=== PATIENT | female | born 1965 | race Caucasian/White ===

== ENCOUNTER → 2020-05-14 10:59 | Outpatient (BNVA) | payer OTHER, SELFPAY | PROVIDERS: PCP Nurse Practitioner Family; Visit Provider Family Medicine Adult Medicine | DX: M48.061 Spinal stenosis, lumbar region without neurogenic claudication (principal); M13.851 Other specified arthritis, right hip | CPT/HCPCS: Q3014 ==

== ENCOUNTER → 2020-06-11 15:37 | Outpatient (BNVA) | payer OTHER, SELFPAY | PROVIDERS: PCP Nurse Practitioner Family; Visit Provider Family Medicine Adult Medicine | DX: M47.812 Spondylosis without myelopathy or radiculopathy, cervical region (principal); M48.061 Spinal stenosis, lumbar region without neurogenic claudication; M13.851 Other specified arthritis, right hip; Z79.899 Other long term (current) drug therapy | CPT/HCPCS: 99212 ==

== ENCOUNTER → 2020-06-26 15:27 | Outpatient (BNVA) | payer OTHER, SELFPAY | PROVIDERS: PCP Nurse Practitioner Family; Visit Provider Nurse Practitioner Family | DX: M48.061 Spinal stenosis, lumbar region without neurogenic claudication (principal); M13.851 Other specified arthritis, right hip; M47.812 Spondylosis without myelopathy or radiculopathy, cervical region | CPT/HCPCS: 99212 ==

== ENCOUNTER → 2020-07-14 14:48 | Outpatient (BNVA) | payer OTHER, SELFPAY | PROVIDERS: PCP Nurse Practitioner Family; Visit Provider Family Medicine Adult Medicine | DX: M13.851 Other specified arthritis, right hip (principal); M48.061 Spinal stenosis, lumbar region without neurogenic claudication; M47.812 Spondylosis without myelopathy or radiculopathy, cervical region | CPT/HCPCS: Q3014 ==

== ENCOUNTER → 2020-07-21 14:55 | Outpatient (BNVA) | payer OTHER, SELFPAY | PROVIDERS: PCP Nurse Practitioner Family; Visit Provider Family Medicine Adult Medicine | DX: M48.061 Spinal stenosis, lumbar region without neurogenic claudication (principal); M47.812 Spondylosis without myelopathy or radiculopathy, cervical region | CPT/HCPCS: 99212 ==

== ENCOUNTER → 2020-07-30 14:45 | Outpatient (BNVA) | payer OTHER, SELFPAY | PROVIDERS: PCP Nurse Practitioner Family; Visit Provider Family Medicine Adult Medicine | DX: M48.061 Spinal stenosis, lumbar region without neurogenic claudication (principal); M47.812 Spondylosis without myelopathy or radiculopathy, cervical region | CPT/HCPCS: 99212 ==

== ENCOUNTER → 2020-08-04 08:26 | Outpatient (BNVA) | payer OTHER, SELFPAY | PROVIDERS: PCP Nurse Practitioner Family; Visit Provider Family Medicine Adult Medicine | DX: M48.061 Spinal stenosis, lumbar region without neurogenic claudication (principal); M47.812 Spondylosis without myelopathy or radiculopathy, cervical region | CPT/HCPCS: Q3014 ==

== ENCOUNTER 2020-08-20 09:28 | Outpatient (REF) | payer OTHER, SELFPAY ==
[2020-08-20 12:01] LABS: Alanine Aminotransferase 31 U/L (0-31); Albumin Level 3.8 g/dL (3.5-5.0); Alkaline Phosphatase 99 U/L (39-117); Anion Gap 14 (12-20); Aspartate Amino Transferase 17 U/L (5-31); Bilirubin Total 0.2 mg/dL (0.0-1.0); Blood Urea Nitrogen 23 mg/dL (9-16); Calcium 9.1 mg/dL (8.4-10.2); Carbon Dioxide 30 mmol/L (22-29); Chloride 101 mmol/L (96-108); Cholesterol 195 mg/dL; Estimated Glomerular Filt Rate > 60; Glucose Fasting 97 mg/dL (60-99); HDL Cholesterol 48 mg/dL; LDL Cholesterol Calculated 125 mg/dl; Potassium 4.1 mmol/L (3.3-5.1); Sodium 141 mmol/L (135-145); Total Protein 6.4 g/dL (6.5-8.0); Triglycerides 112 mg/dL
[2020-08-20 12:14] LABS: B Type Natriuretic Peptide 24 pg/mL (<100)
[2020-08-20 12:25] LABS: TSH reflex Free T4 1.28 uIU/mL (0.32-4.0)
== END 2020-08-20 09:29 | disposition home or self-care (01) ==
LOC: HO.HMGCLDS 09:28
PROVIDERS: PCP Nurse Practitioner Family; Visit Provider Nurse Practitioner Family
DX: M79.89 Other specified soft tissue disorders (principal)
CPT/HCPCS: 36415; 80053; 80061; 83880; 84443

== ENCOUNTER → 2020-08-27 10:54 | Outpatient (BNVA) | payer OTHER, SELFPAY | PROVIDERS: PCP Nurse Practitioner Family; Visit Provider Family Medicine Adult Medicine | DX: M48.061 Spinal stenosis, lumbar region without neurogenic claudication (principal); M47.812 Spondylosis without myelopathy or radiculopathy, cervical region; Z79.899 Other long term (current) drug therapy | CPT/HCPCS: 99212 ==

== ENCOUNTER 2020-09-24 10:09 | Outpatient (REF) | payer OTHER, SELFPAY | END 2020-09-24 10:10 | disposition home or self-care (01) | LOC: HO.LAB 10:09 | PROVIDERS: PCP Nurse Practitioner Family; Visit Provider Family Medicine Adult Medicine | DX: M48.061 Spinal stenosis, lumbar region without neurogenic claudication (principal); M47.812 Spondylosis without myelopathy or radiculopathy, cervical region; E66.9 Obesity, unspecified; Z79.891 Long term (current) use of opiate analgesic; Z79.899 Other long term (current) drug therapy; Z87.891 Personal history of nicotine dependence | CPT/HCPCS: 99212 ==

== ENCOUNTER → 2020-10-28 13:46 | Outpatient (BNVA) | payer OTHER, SELFPAY | PROVIDERS: PCP Nurse Practitioner Family; Visit Provider Nurse Practitioner Family | DX: M13.851 Other specified arthritis, right hip (principal); M48.061 Spinal stenosis, lumbar region without neurogenic claudication; M47.812 Spondylosis without myelopathy or radiculopathy, cervical region; Z79.891 Long term (current) use of opiate analgesic | CPT/HCPCS: 99212 ==

== ENCOUNTER → 2020-11-26 14:58 | Outpatient (BNVA) | payer OTHER, SELFPAY | PROVIDERS: PCP Nurse Practitioner Family; Visit Provider Family Medicine Adult Medicine | DX: Z51.81 Encounter for therapeutic drug level monitoring (principal); M48.061 Spinal stenosis, lumbar region without neurogenic claudication; M47.812 Spondylosis without myelopathy or radiculopathy, cervical region; E66.9 Obesity, unspecified | CPT/HCPCS: 99212 ==

== ENCOUNTER 2021-09-30 12:15 | Outpatient (REF) | payer OTHER, SELFPAY ==
[2021-09-30 13:43] LABS: MANUAL DIFF FLAG NO
[2021-09-30 13:50] LABS: Basophils Percent Auto 0.3 % (0-2); Eosinophils Percent Auto 0.1 % (0-4); Hematocrit 46.4 % (37.0-47.0); Imm Gran Abs Auto 0.06 X10*3/uL (0.00-0.03); Imm Gran Pct Auto 0.4 % (0.0-0.4); Lymphocytes Absolute Auto 2.4 X10*3/uL (1.2-4.9); Lymphocytes Percent Auto 17.8 % (20-40); Mean Corpuscular HGB Conc 32.3 g/dl (31.0-35.0); Mean Corpuscular Hemoglobin 29.6 pg (27.0-33.0); Mean Corpuscular Volume 91.5 fL (80.0-98.0); Mean Platelet Volume 11.3 fL (9.4-12.3); Monocytes Absolute Auto 0.9 X10*3/uL (0.1-1.2); Monocytes Percent Auto 6.5 % (2-11); Neutrophils Absolute Auto 10.1 x10*3/uL (2.0-8.3); Neutrophils Percent Auto 74.9 % (45-73); Platelet Count 373 X10*3/uL (160-400); Red Blood Count 5.07 X10*6/uL (4.20-5.50); Red Cell Distribution Width 13.9 % (11.0-16.0); White Blood Count 13.5 X10*3/uL (4.8-10.8)
[2021-09-30 14:06] LABS: Alanine Aminotransferase 10 U/L (0-31); Albumin Level 4.6 g/dL (3.5-5.0); Alkaline Phosphatase 155 U/L (39-117); Anion Gap 16 (12-20); Aspartate Amino Transferase 11 U/L (5-31); Bilirubin Total 0.4 mg/dL (0.0-1.0); Blood Urea Nitrogen 12 mg/dL (9-16); Calcium 9.7 mg/dL (8.4-10.2); Carbon Dioxide 27 mmol/L (22-29); Chloride 104 mmol/L (96-108); Estimated Glomerular Filt Rate > 60; Glucose Random 94 mg/dL (60-115); Potassium 4.1 mmol/L (3.3-5.1); Sodium 143 mmol/L (135-145); Total Protein 7.7 g/dL (6.5-8.0)
[2021-09-30 14:07] LABS: Appearance Urine CLEAR; Color Urine YELLOW; Glucose Urine UA NEG (NEG); Leukocyte Esterase Urine NEG (NEG); Nitrite Urine NEG (NEG); PH 6.5 (5.0-8.0); Specific Gravity - Urine 1.015 (1.005-1.025); UACC Culture Trigger NO; Urine Blood NEG (NEG); Urine Ketones NEG (NEG); Urine Protein 1+ MG/DL (NEG-TRACE)
[2021-09-30 14:14] LABS: Mucus Urine 1+ /LPF; RBC Urine 0-2 /HPF (0); Squamous Epithelial Cell Urine 1+ /LPF
[2021-09-30 14:30] LABS: TSH reflex Free T4 0.81 uIU/mL (0.32-4.0)
== END 2021-09-30 12:16 | disposition home or self-care (01) ==
LOC: HO.HMGCLDS 12:15
PROVIDERS: PCP Nurse Practitioner Family; Visit Provider Nurse Practitioner Family
DX: G89.29 Other chronic pain (principal); D72.829 Elevated white blood cell count, unspecified; R74.8 Abnormal levels of other serum enzymes; T14.8XXA Other injury of unspecified body region, initial encounter; L08.9 Local infection of the skin and subcutaneous tissue, unspecified
CPT/HCPCS: 36415; 80053; 81001; 81003; 84443; 85025

== ENCOUNTER → 2022-02-04 10:03 | Outpatient (BNVA) | payer OTHER, SELFPAY | PROVIDERS: PCP Nurse Practitioner Family; Visit Provider Surgery | DX: T81.89XD Other complications of procedures, not elsewhere classified, subsequent encounter (principal); S31.103D Unspecified open wound of abdominal wall, right lower quadrant without penetration into peritoneal cavity, subsequent encounter | CPT/HCPCS: 99202 ==

== ENCOUNTER 2022-02-23 06:02 | Day surgery (SDC) | payer OTHER, SELFPAY ==
[2022-02-23] VITALS (7 sets, daily range): BP systolic 134–187; BP diastolic 86–111; PULSE 79–85; RESP 16–22; TEMP 36.7–36.8; O2SAT 94–99; BMI 28.1
[2022-02-23] MEDS: Lactated Ringers 1,000 ML 100 ML IVCONT (07:41)
[2022-02-23] MEDS: vancomycin HCL 1,500 MG in 0.9 % Sodium Chloride 500 ML 333.33 MG IV (07:42)
--- NOTE | 2022-02-23 08:04 | P.CONAN_ITS ---
FORM[facility]LY [facility] Active Problems Active Problems: All Active Problems (Updated 02/15/22 @ 15:36 by Kasey Almaraz RN) Malabsorption syndrome (Acute) Personal history of other diseases of the digestive system (Acute) Swelling of both lower extremities (Acute) Wound infection (Acute) Thrush, oral (Acute) Trapezius muscle spasm (Acute) Chronic pain (Acute) Leukocytosis (Acute) Elevated alkaline phosphatase level (Acute) Chronic pain (Acute) Open wound of abdomen (Acute) Cervical spondylosis (Acute) Other specified arthritis, right hip (Acute) Lumbar stenosis (Acute) Past Medical History Medical History Cervical spondylosis Chronic back pain GERD (gastroesophageal reflux disease) History of depression Hx MRSA infection Lumbar stenosis Morbid obesity Other specified arthritis, right hip Spinal stenosis Family History Family History Sister Non-Hodgkin lymphoma Sister Aneurysm Family history of problems with anesthesia: No Surgical History Surgical History (Updated 02/15/22 @ 15:26 by Kasey Almaraz RN) H/O umbilical hernia repair (2017) History of cervical discectomy History of excision of mass History of excision of pilonidal cyst History of foot surgery History of incisional hernia repair History of Problems with Anesthesia: No Social History Social History Household Members Other:: , lives with son and grandson Housing: Homeless Patient Tobacco Use Status: Current everyday Tobacco user Tobacco use type: Cigarette Cigarette Packs Per Day: 0.5 Cigarettes Per Day: 10.0 e-Cigarette/Vaping Use: Currently Using (THC ) Use of substances other than those prescribed or required for medical reasons: Yes Are you DNR?: No Advance Directives: No Advance Directives Information Provided: Yes Current occupation: Former employed at [employer] last worked 2004 SS Disability about 15 y Cognitive needs: No Hearing needs: No Vision needs: No Meds Allergies Allergy/AdvReac Type Severity Reaction Status Date / Time Penicillins [PENICILLINS] Allergy Severe THROAT Verified 02/15/22 15:26 SWELLS gabapentin [GABAPENTIN] Allergy Intermediate HEADACHE/BLURRED Verified 02/15/22 15:26 VISION, Blurred vision, headaches Sulfa (Sulfonamide Allergy Unknown Unknown Verified 02/15/22 15:26 Antibiotics) Gkpnogf-JUN-KcL Reductase AdvReac Unknown STOMACH Verified 02/15/22 15:26 Inhibitor UPSET [NPKTMOU-XKO-XFW REDUCTASE INHIBITOR] Active Medications: Current Medications Lactated Ringer's (Lr) 1,000 mls @ 100 mls/hr IVCONT .Q10H SANA Last Admin: 02/23/22 07:41 Dose: 100 mls/hr Vancomycin HCl 1,500 mg/ (Sodium Chloride) 500 mls @ 333.333 mls/hr IV PREOP ONE Stop: 02/23/22 08:44 Last Admin: 02/23/22 07:42 Dose: 333.33 mls/hr Pharmacy Consult (Consult Rx Vancomycin Dosing) 1 each MISCELLANE DAILY PRN PRN Reason: Consult order Home Medications Medication Instructions Recorded Confirmed Last Taken Type acetaminophen 325 mg tablet 650 mg PO AC pain 02/23/22 02/23/22 02/23/22 04:00 History (Tylenol) Exam Exam Date and Time: February 23, 2022 0804 Height,Weight and Vital Signs: Height 5 ft 7 in Weight 81.647 kg Last Vital Signs Temp 98.0 F 02/23/22 07:30 Pulse 80 02/23/22 07:30 Resp 22 H 02/23/22 07:30 BP 134/86 02/23/22 07:30 Pulse Ox 96 02/23/22 07:30 O2 Del Method 02/23/22 07:30 Airway Mallampati Class: I TM Dist: >3cm Neck ROM: Full Denture: Upper and Lower Heart: rrr Lungs: clear Assessment and Plan Final Anesthetic Review Family History of Problems with Anesthesia: No History of Problems with Anesthesia: No ASA Class: II Final Preanesthetic Review: No Changes in Pt Med Stat, Meds/Allgs Chart Reviewed, Consent Obtained/Reviewed and Anes Risks/Benef Reviewed Patient Risk: Intermediate Procedure Risk: Intermediate Anesthetic Plan Anesthetic Plan: GA Disposition: Standard PACU
--- NOTE | 2022-02-23 11:03 | W.PM.OPN ---
Operative Note Operative Note Date of Service: 02/23/22 Narrative: Preoperative diagnosis: Abdominal wall fistula Postoperative diagnosis: abdominal wall fistula, foreign body abdominal wall Procedure: excision of abdominal wall fistula, removal of hernia mesh and sutures Surgeon: Lj Castaneda MD R&D Lab Technician: Mandy Waddell PA-C, SHAHEEN Ashford Anesthesia: general LMA Indications for procedure: 56-year-old female patient with a previous history of incisional hernia complicated by MRSA and sepsis at an outside hospital now with persistent fistula draining from multiple areas in her abdominal wall presumably from an underlying foreign body. Operative findings: Multiple sutures and mesh material from previous hernia repairs removed. Specimen: Hernia mesh and sutures, fistula tract Estimated blood loss: 20 mL Complications: none Procedure details: patient was brought to the OR placed in a supine position. After administering general anesthesia the patient's abdomen was prepped with Betadine and draped in a sterile fashion. A surgical time-out was called the consent confirmed. Patient received preoperative antibiotics and Venodyne boots were in place. Local anesthesia consisting of 0.5% Sensorcaine with epinephrine was then infiltrated in the midline around the fistulous tracts. A total of 20 mL Sensorcaine was infiltrated. Elliptical incision was then made around each of the fistulous tracts and carried out through subcutaneous tissue. A probe was used to identify the fistulous tract. Dissection was continued down using both sharp and electrocautery dissection down to the base of the fistula tract. Multiple sutures of either Tycron + Prolene was identified along with residual mesh material at the base of the granulation tissue. The mesh was removed and sutures removed. Several fascial defects were made to remove the mesh no bowel or enteric content was identified during the procedure. There was several areas of phlegmon and abscess cavity with purulent material noted within the granulation tissue. Cultures of the abscess were obtained. Wounds were then irrigated thoroughly with saline solution and suctioned dry. Wounds were checked for hemostasis. Fascial defects were closed using interrupted [id number] 0 Polysorb sutures. Subcutaneous tissue was then loosely approximated using interrupted 3-0 Polysorb sutures. Skin was closed using skin janette. Sterile dressings were then applied. The patient tolerated the procedure well. Sponge, instrument, and needle counts reported as correct. The patient was transferred to PACU in stable condition.
--- NOTE | 2022-02-23 13:23 | PC.NURSE ---
Patient in discharge area post procedure. During discharge instructions stated I have no one to call to pick me up . Phone number given in preop called multiple times with no answer. Director Kimmie made aware. Kimmie at bedside and spoke to patient who decided to sign out AMA. Patient states she will sleep in her car for a little . Patient wheeled down to car by lai Driscoll. Security notified and aware of the situation.
== END 2022-02-23 13:23 | disposition home or self-care (01) ==
PROVIDERS: PCP Surgery; Visit Provider Surgery
PROC: (CPT 11005; principal; 2022-02-23 08:40)
DX: S31.109A Unspecified open wound of abdominal wall, unspecified quadrant without penetration into peritoneal cavity, initial encounter (principal); T81.83XA Persistent postprocedural fistula, initial encounter; T85.79XA Infection and inflammatory reaction due to other internal prosthetic devices, implants and grafts, initial encounter; Y73.3 Surgical instruments, materials and gastroenterology and urology devices (including sutures) associated with adverse incidents; Y92.9 Unspecified place or not applicable; Z86.14 Personal history of Methicillin resistant Staphylococcus aureus infection; K90.9 Intestinal malabsorption, unspecified; Z87.19 Personal history of other diseases of the digestive system; G89.29 Other chronic pain; M47.812 Spondylosis without myelopathy or radiculopathy, cervical region; E66.9 Obesity, unspecified; Z68.26 Body mass index [BMI] 26.0-26.9, adult; Z79.899 Other long term (current) drug therapy; Z88.0 Allergy status to penicillin; Z88.2 Allergy status to sulfonamides; Z88.8 Allergy status to other drugs, medicaments and biological substances; F17.210 Nicotine dependence, cigarettes, uncomplicated; F12.90 Cannabis use, unspecified, uncomplicated; Z98.890 Other specified postprocedural states
CPT/HCPCS: 11005; 11008; 87070; 87077; 87186; 87205; 88304; J0330; J1100; J1170; J1885; J2250; J2405; J2795; J3010; J3370

== ENCOUNTER 2022-12-29 11:30 | Outpatient (AMB) | payer OTHER, SELFPAY ==
--- NOTE | 2022-12-29 11:31 | MHC.PC.OV ---
Vital Signs 12/29/22 11:32 Height 5 ft 7 in Weight 164 lb 2 oz BMI 25.7 BP 160/86 H Blood Pressure Location Rt brachial Position Sitting Pulse 102 H Pulse Source Pulse Oximeter Pulse Oximetry (%) 99 Oxygen Delivery Method Room Air Intake Visit Reasons: Annual PE/Forms Allergies Penicillins [PENICILLINS] Allergy (Severe, Verified 12/29/22 11:36) THROAT SWELLS gabapentin [GABAPENTIN] Allergy (Intermediate, Verified 12/29/22 11:36) HEADACHE/BLURRED VISION, Blurred vision, headaches Sulfa (Sulfonamide Antibiotics) Allergy (Unknown, Verified 12/29/22 11:36) Unknown Blvxzhg-ACE-NaW Reductase Inhibitor [YVMRGUQ-MFF-KVV REDUCTASE INHIBITOR] Adverse Reaction (Unknown, Verified 12/29/22 11:36) STOMACH UPSET Tobacco use date assessed: 12/29/22 Dental Screening Dental Screen Date: 12/29/22 Did you have a dental visit in the last 12 months?: Yes Did you have a dental problem in the last 6 months where you did not have access to dental care?: No Was dental information given to patient?: Patient has dentist HPI Annual PE/Forms HPI Details pt is here for a PE. paperwork filled out to get placed not so far back on a waiting list for housing. Pt does have true disabilities (significant lower back Hx). currently living in her car, has a care worker with her today. Highly agree she needs established housing to continue to heal, or increase her chances of healing, and for safety reasons as well. Colon screen was last done in 2016, will contact her GI provider to see when next colon screen is due. mammogram ordered. Pt refuses low dose CT scans (smoker). Bp is elevated, ? partially from pain. Pt does not want to be referred to pain management. refused EKG today. PT REFUSED BP MEDICATION. pt is clearly in pain, does not want any narcotics, i pray . i will send marinol, though used for appetite, may help with pain and nausea (pt requested medication). HPI Comments History of Present Illness Details Pt is here for a PE. colonoscopy is up to date [facility] Medical History (Updated 12/29/22 @ 12:33 by Lj Winn, EMMA-) Incontinence of urine Chronic back pain GERD (gastroesophageal reflux disease) Spinal stenosis Hx MRSA infection History of depression Cervical spondylosis Morbid obesity Other specified arthritis, right hip Lumbar stenosis Surgical History History of surgery (02/23/22) History of incisional hernia repair History of excision of pilonidal cyst History of foot surgery History of excision of mass History of cervical discectomy H/O umbilical hernia repair (2017) Family History Sister Non-Hodgkin lymphoma Sister Aneurysm Social History Household Members Other:: , lives with son and grandson Housing: Homeless Patient Tobacco Use Status: Current everyday Tobacco user Tobacco use type: Cigarette Cigarette Packs Per Day: 0.5 Cigarettes Per Day: 10.0 e-Cigarette/Vaping Use: Currently Using (THC ) Second Hand Smoke Exposure: No Current occupational status: unemployed Current occupation: Former employed at [employer] last worked 2004 SS Disability about 15 y Cognitive needs: No Hearing needs: No Vision needs: No Questionnaire AUDIT C Alcohol Use Questionnaire (AUDIT-C) 1. How often do you have a drink containing alcohol?: Never Total Score: 0 Review of Systems Const Denies chills and Denies fever(s) Eyes Denies blurry vision ENT Denies vertigo, Denies dizziness and Denies sore throat Card Denies chest pain at rest, Denies chest pain with activity, Denies diaphoresis, Denies dyspnea and Denies dyspnea on exertion Resp Denies cough, Denies dyspnea, Denies dyspnea on exertion and Denies wheezing GI Denies abdominal pain, Denies melena, Denies hematochezia, Denies constipation, Denies diarrhea and Denies loose stools Denies hematuria Musc Reports numbness (BLE) and Reports tingling Skin/Breast Denies lesions Neuro Denies vertigo, Denies dizziness, Reports numbness (BLE) and Reports tingling Psych Denies anxiety, Denies depression, Denies homicidal ideation, Denies suicidal ideation and Denies other (substance abuse) Aller/Immun Denies wheezing Physical exam (Primary Care) Vital Signs: Last Vital Signs Pulse 102 H 12/29/22 11:32 BP 160/86 H 12/29/22 11:32 Pulse Ox 99 12/29/22 11:32 Oxygen Delivery Method Room Air 12/29/22 11:32 BMI result Body Mass Index 25.7 Tobacco/Smoking Status: Tobacco use Status Tobacco use date assessed 12/29/22 12/29/22 11:38 Patient Tobacco Use Status Current everyday Tobacco 12/29/22 11:38 Tobacco use type Cigarette 12/29/22 11:38 e-Cigarette/Vaping Use Currently Using (THC ) 12/29/22 11:38 Const Other: using walker, using abd binder General: cooperative Nutritional Appearance: well nourished Orientation/consciousness: patient oriented x3 HENMT Head: Yes normal to inspection, Yes normocephalic and Yes atraumatic Ears: TM normal on the right and TM normal on the left Eyes General: appearance normal, both eyes and all related structures Alignment and Position: alignment normal and position normal Neck Neck: Yes normal visual inspection and Yes no lymphadenopathy Resp Effort & Inspection: normal respiratory effort Auscultation: clear to auscultation bilaterally (clear/dim bilat) Cardio Rate: regular rate Rhythm: regular rhythm Heart sounds: S1 normal heart sound present, S2 normal heart sound present and no murmurs GI Palpation (GI): Soft to palpation and nontender Auscultation: normal bowel sounds Skin Rashes: no rashes Neuro Other: left patellar DTR decreased. using walker General: patient oriented x3, moves all extremities and no focal motor deficits Romberg Test: Negative Extrem Right lower extremity: no edema Left lower extremity: no edema Psych Affect: normal affect Attitude: cooperative Thought process: Normal thought process present Assessment and Plan Assessment & Plan (1) Physical exam: Code(s): Z00.00 - Encounter for general adult medical examination without abnormal findings (2) Post-menopausal: Code(s): Z78.0 - Asymptomatic menopausal state (3) Systolic murmur: Code(s): R01.1 - Cardiac murmur, unspecified Plan: echo ordered Orders: Orders MM screening mammo BI Today Z12.31 - Encounter for screening mammogram for malignant neoplasm of breast UA CC w/rflx Micro + Cult Today Z00.00 - Encounter for general adult medical examination without abnormal findings Vitamin D 25-OH Total Today Z78.0 - Asymptomatic menopausal state CA echo transthoracic complete Today R01.1 - Cardiac murmur, unspecified Complete Blood Count Auto Diff Today Z00.00 - Encounter for general adult medical examination without abnormal findings Comprehensive [place]. Panel Fast Today Z00.00 - Encounter for general adult medical examination without abnormal findings TSH reflex Free T4 Today Z00.00 - Encounter for general adult medical examination without abnormal findings Lipid Panel Today Z00.00 - Encounter for general adult medical examination without abnormal findings Medications: New dronabinol (Marinol) 2.5 mg PO BEDTIME 30 caps 0RF Coding Level of Care Code Est Pt Prev Care 40-64y(14395) Diagnoses Physical exam Z00.00 Post-menopausal Z78.0 Systolic murmur R01.1
[2022-12-29 11:32] VITALS: BP 160/86; PULSE 102; O2SAT 99; BMI 25.7
== END 2022-12-29 13:55 | disposition home or self-care (01) ==
PROVIDERS: PCP Nurse Practitioner Family; Visit Provider Nurse Practitioner Family
DX: Z00.00 Encounter for general adult medical examination without abnormal findings (principal); Z78.0 Asymptomatic menopausal state; R01.1 Cardiac murmur, unspecified
CPT/HCPCS: 99396

== ENCOUNTER 2023-02-06 08:40 | Outpatient (AMB) | payer OTHER, SELFPAY ==
--- NOTE | 2023-02-06 07:09 | MHC.PC.OV ---
Intake Visit Reasons: Discuss drobabinol need, PA requires more info Allergies Penicillins [PENICILLINS] Allergy (Severe, Verified 12/29/22 11:36) THROAT SWELLS gabapentin [GABAPENTIN] Allergy (Intermediate, Verified 12/29/22 11:36) HEADACHE/BLURRED VISION, Blurred vision, headaches Sulfa (Sulfonamide Antibiotics) Allergy (Unknown, Verified 12/29/22 11:36) Unknown Jwerhtd-GMU-UjY Reductase Inhibitor [RFDSRFC-MKY-NZE REDUCTASE INHIBITOR] Adverse Reaction (Unknown, Verified 12/29/22 11:36) STOMACH UPSET Tobacco use date assessed: 12/29/22 HPI Discuss drobabinol need, PA requires more info HPI Details Pt would like to try dronabinol for pain. PA for this med was denied by insurance. Will submit appeal letter. Pt reports severe pain that is affecting her mobility. Pt has a Hx of several ABD surgeries, all fairly complicated. Further has lumbar spinal stenosis, DDD, a compression Fx (lumbar), chronic pain syndrome, Pt also needs assistance with housing. Will have team reach out to pt. Denies fever, chills, and dizziness. [facility] Medical History (Updated 01/06/23 @ 14:59 by Barbie Howlel RN) Incontinence of urine Chronic back pain GERD (gastroesophageal reflux disease) Spinal stenosis Hx MRSA infection History of depression Cervical spondylosis Morbid obesity Other specified arthritis, right hip Lumbar stenosis Surgical History History of surgery (02/23/22) History of incisional hernia repair History of excision of pilonidal cyst History of foot surgery History of excision of mass History of cervical discectomy H/O umbilical hernia repair (2017) Family History Sister Non-Hodgkin lymphoma Sister Aneurysm Social History Household Members Other:: , lives with son and grandson Housing: Homeless Patient Tobacco Use Status: Current everyday Tobacco user Tobacco use type: Cigarette Cigarette Packs Per Day: 0.5 Cigarettes Per Day: 10.0 e-Cigarette/Vaping Use: Currently Using (THC ) Second Hand Smoke Exposure: No Current occupational status: unemployed Current occupation: Former employed at [employer] last worked 2004 SS Disability about 15 y Cognitive needs: No Hearing needs: No Vision needs: No Review of Systems Const Reports as per HPI Physical exam (Primary Care) Tobacco/Smoking Status: Tobacco use Status Tobacco use date assessed 12/29/22 02/06/23 07:10 Patient Tobacco Use Status Current everyday Tobacco 02/06/23 07:10 Tobacco use type Cigarette 02/06/23 07:10 e-Cigarette/Vaping Use Currently Using (THC ) 02/06/23 07:10 Const General: cooperative Orientation/consciousness: patient oriented x3 Neuro General: patient oriented x3 Psych Appearance: grossly normal Mental Status: mental status grossly normal Speech and movement: Clear speech present Affect: normal affect Attitude: cooperative Thought process: Normal thought process present Thought content: Normal thought content present Insight: Good insight present (Psych) Judgement: Good judgement present (Psych) Telehealth Telehealth Location of provider rendering services: practice address Location of patient: address on file Patient Identification confirmed using: Name, : Yes Telehealth method: video Patient verbally consented to treatment: Yes Patient verbally consented to billing insurance company: Yes Patient informed of any privacy concerns related to visit: Yes Minutes spent on Phone/Video with Pt.: 20 Assessment and Plan Assessment & Plan (1) Homeless: Code(s): Z59.00 - Homelessness unspecified (2) Chronic pain: Code(s): G89.29 - Other chronic pain Plan The patient agreed to the use of a emergency medicine medical director for this encounter. Scribed for GLORIA Cruz by jose Prado scribe, on 02/06/2023 at 07:20 EST. Coding Level of Care Code Tele Est Pt Level 3 (76997) Diagnoses Homeless Z59.00 Chronic pain G89.29
== END 2023-02-06 13:59 | disposition home or self-care (01) ==
LOC: HO.HMGC 08:40
PROVIDERS: PCP Nurse Practitioner Family; Visit Provider Nurse Practitioner Family
DX: G89.29 Other chronic pain (principal); Z59.00 Homelessness unspecified
CPT/HCPCS: 99213

== ENCOUNTER 2023-02-27 11:13 | Outpatient (AMB) | payer OTHER, SELFPAY ==
--- NOTE | 2023-02-27 11:40 | MHC.OFFVIS ---
Intake Intake Visit Reasons: housing forms Allergies Penicillins [PENICILLINS] Allergy (Severe, Verified 12/29/22 11:36) THROAT SWELLS gabapentin [GABAPENTIN] Allergy (Intermediate, Verified 12/29/22 11:36) HEADACHE/BLURRED VISION, Blurred vision, headaches Sulfa (Sulfonamide Antibiotics) Allergy (Unknown, Verified 12/29/22 11:36) Unknown Xweezal-QCQ-EbN Reductase Inhibitor [SNTUEVY-IWN-CWX REDUCTASE INHIBITOR] Adverse Reaction (Unknown, Verified 12/29/22 11:36) STOMACH UPSET HPI housing forms HPI Details And Eriberto is currently living out of her car. She has been for quite some time. I have filled out paperwork previously to get her into housing, housing that can accommodate her and her needs. A form was REfilled out emphasizing that she does need housing in the very near future with winter coming, and do to her ongoing chronic illnesses. Patient unfortunately continues to smoke. She was looking for Marinol, but this has not been approved by her insurance. I tried explaining this to her several times. She reports she could not afford gummies . I really explain this all has to deal with the insurance. She has been to pain management in the past, she does not want to go here anymore, she is not interested in injections or opiates. She does use a walker. My major concern is getting her into housing. Our behavior health specialist has worked with this patient in the past, numbers were given for shelters, for example. Patient is still living in her car and I refilled out paperwork to get her into housing [place]. [facility] Medical History (Updated 02/27/23 @ 11:41 by GLORIA Mcgowan) Incontinence of urine Chronic back pain GERD (gastroesophageal reflux disease) Spinal stenosis Hx MRSA infection History of depression Cervical spondylosis Morbid obesity Other specified arthritis, right hip Lumbar stenosis Surgical History History of surgery (02/23/22) History of incisional hernia repair History of excision of pilonidal cyst History of foot surgery History of excision of mass History of cervical discectomy H/O umbilical hernia repair (2017) Family History Sister Non-Hodgkin lymphoma Sister Aneurysm Household Members Other:: , lives with son and grandson Housing: Homeless Patient Tobacco Use Status: Current everyday Tobacco user Tobacco use type: Cigarette Cigarette Packs Per Day: 0.5 Cigarettes Per Day: 10.0 e-Cigarette/Vaping Use: Currently Using (THC ) Second Hand Smoke Exposure: No Current occupational status: unemployed Current occupation: Former employed at [employer] last worked 2004 SS Disability about 15 y Cognitive needs: No Hearing needs: No Vision needs: No Assessment & Plan Assessment & Plan (1) Unsheltered homelessness: Code(s): Z59.02 - Unsheltered homelessness Plan: paperwork Re-filled out for housing. (2) Chronic back pain: Code(s): M54.9 - Dorsalgia, unspecified; G89.29 - Other chronic pain Plan: not interested in PT or pain management. Telehealth Telehealth Location of provider rendering services: practice address Location of patient: address on file (living in car) Patient verbally consented to treatment: Yes Patient verbally consented to billing insurance company: Yes Patient informed of any privacy concerns related to visit: Yes Minutes spent on Phone/Video with Pt.: 10 Coding Level of Care Code Tele Est Pt Level 3 ([id number]) Diagnoses Unsheltered homelessness Z59.02 Chronic back pain M54.9; G89.29
== END 2023-02-27 15:18 | disposition home or self-care (01) ==
LOC: HO.HMGC 11:13
PROVIDERS: PCP Nurse Practitioner Family; Visit Provider Nurse Practitioner Family
DX: M54.9 Dorsalgia, unspecified (principal); Z59.02 Unsheltered homelessness; G89.29 Other chronic pain
CPT/HCPCS: 99441

== ENCOUNTER 2024-08-28 16:06 | Outpatient (AMB) | payer OTHER, SELFPAY ==
[2024-08-28 16:11] VITALS: BP 122/80; PULSE 87; O2SAT 98
--- NOTE | 2024-08-28 16:11 | MHC.OFFWIV ---
Intake Vital Signs 08/28/24 16:11 Height 5 ft 7 in BMI Reason not done Patient refused/unable BP 122/80 Blood Pressure Location Lt brachial Position Sitting Pulse 87 Pulse Source Pulse Oximeter Pulse Oximetry (%) 98 Oxygen Delivery Method Room Air Intake Visit Reasons: EP severe pain on legs & back Patient Tobacco Use Status: Current everyday Tobacco user Allergies Penicillins [PENICILLINS] Allergy (Severe, Verified 08/28/24 16:12) THROAT SWELLS gabapentin [GABAPENTIN] Allergy (Intermediate, Verified 08/28/24 16:12) HEADACHE/BLURRED VISION, Blurred vision, headaches Sulfa (Sulfonamide Antibiotics) Allergy (Unknown, Verified 08/28/24 16:12) Unknown Sxtsmlh-CCK-ZtS Reductase Inhibitor [[id number]-[id number]-BCM REDUCTASE INHIBITOR] Adverse Reaction (Unknown, Verified 08/28/24 16:12) STOMACH UPSET Do you need a note to return to daycare/school/sports/work: No HPI HPI Comments History of Present Illness Details Patient is a 58yo F who presents to office with back and leg pain Per her PMH she has hx of chronic back pain lumbar compression fx, lumbar stenosis, MRSA infection Takes tylenol/ibuprofen and naproxen prn but is paying out of pocket for all meds SHe said chronic pain even after back surgery Has used Voltaren cream OTC She uses a walker to help ambulate She currently lives in her car and does not receive services for her chronic pain Has seen pain management in the past but does not want to go back to them No recent trauma or falls 10/10 pain Chronic hip pain is constant per pt Sitting.standing makes leg worse She said elg pain radiates down both legs She denies urine incontinence No dysuria, frequency or urgency No current hematuria; states in the am it is slightly darker but better with fluids and becomes clean No fever or chills Last time she was seen PCP in 2022. No specialist used for chronic pain PFSH Medical History (Updated 08/28/24 @ 16:48 by Rubi Landis PA-C) Incontinence of urine Chronic back pain GERD (gastroesophageal reflux disease) Spinal stenosis Hx MRSA infection History of depression Cervical spondylosis Morbid obesity Other specified arthritis, right hip Lumbar stenosis Surgical History History of surgery (02/23/22) History of incisional hernia repair History of excision of pilonidal cyst History of foot surgery History of excision of mass History of cervical discectomy H/O umbilical hernia repair (2017) Family History Sister Non-Hodgkin lymphoma Sister Aneurysm Social History Household Members Other:: , lives with son and grandson Housing: Homeless Patient Tobacco Use Status: Current everyday Tobacco user Tobacco use type: Cigarette Cigarette Packs Per Day: 0.5 Cigarettes Per Day: 10.0 e-Cigarette/Vaping Use: Currently Using Second Hand Smoke Exposure: No Current occupational status: unemployed Current occupation: Former employed at [employer] last worked 2004 SS Disability about 15 y Cognitive needs: No Hearing needs: No Vision needs: No Review of Systems Const Denies chills, Denies fever(s), Denies frequent falls and Reports other (ambulates with walker) ENT Denies nasal congestion and Denies sore throat Card Denies chest pain and Denies syncope Resp Denies cough GI Reports other (chronic binder and surgery 2022. No wound dehiscence) Denies dysuria, Denies urinary hesitancy and Denies urinary urgency Musc Reports back pain and Reports radiating pain into limb Skin/Breast Denies rash Neuro Denies syncope and Denies frequent falls Physical Exam Vital Signs: Last Vital Signs Pulse 87 08/28/24 16:11 BP 122/80 08/28/24 16:11 Pulse Ox 98 08/28/24 16:11 Oxygen Delivery Method Room Air 08/28/24 16:11 General: Non-toxic, NAD. Speaking full sentences. Skin: Warm dry throughout. No posterior back or flank erythema or ecchymosis. Legs symmetrical in size and shape bilaterally. Eye: EOMI Respiratory: CTA bilaterally. No wheezes, rales or rhonchi Cardiac: RRR. No murmur. No calf tenderness or pedal edema bilaterally\ Abdominal: BS present. No rebound or guarding. No TTP all four quadrants MSK: Diffuse lumbar ttp. Negative bilateral SLR sitting. + full extension of legs at hip. + full extension at knees. 5/5 strength dorsal/plantar flexion great toe bilaterally. Neurology: Alert. No aphasia or facial droop. Psych: Good mood and affect Assessment & Plan Assessment & Plan (1) Lumbar back pain: Code(s): M54.50 - Low back pain, unspecified Plan: Patient seen and evaluated. No new trauma or injury Chronic pain which pt states she is looking for prescriptions for medicine so she is not paying out of pocket cost Discussed the need to follow up with PCP and she was given contact information to [facility] and will call She was encouraged to f/u with ortho or pain management but refuses Scripts given for meloxicam and tylenol (renal function checked form 2022) Discussed no meloxicam use with ibuprofen or naoroxen. No double nsaid use She will seek resources for housing Will call office with concerns Patient gave verbal understanding and had no additional questions or concerns at time of discharge All questions answered Medications: New meloxicam 7.5 mg PO DAILY 15 tabs 0RF acetaminophen (Tylenol Extra Strength) 500 mg PO Q6H PRN 20 tabs 0RF fever Coding Level of Care Code Est Pt Level 3 (85116) Diagnoses Lumbar back pain M54.50
--- OUTSIDE RECORDS SUMMARY | 2024-08-28 16:16 | XMS_ITS | Clinical Summary ---
Author Organization [facility] ity Address [address] [place] [address] Care Team Providers Care Hosiery Repairer Name Role Phone Marilee Gracia MD Primary Care Provider [phone] Allergies Active Allergy Reactions Criticality Noted Date Comments Gabapentin Headache 04/06/2023 Other Reaction(s): OTHER Blurry vision Penicillins Anaphylaxis High 08/05/2016 Wbxabvk-Gmg-God Reductase Inhibitors 04/17/2023 Unknown Medications baclofen (LIORESAL) 5 mg tablet Take by mouth. Active diclofenac (VOLTAREN) 1 % topical gel Apply topically. Active famotidine (PEPCID) 20 mg tablet Take 1 tablet (20 mg total) by mouth 2 (two) times a day. Active acetaminophen (TYLENOL) 500 mg tablet Take 1 tablet (500 mg total) by mouth every 6 (six) hours if needed. Active cyclobenzaprine (FLEXERIL) 5 mg tablet Take 1 tablet (5 mg total) by mouth 3 (three) times a day if needed. Active oxyCODONE (ROXICODONE) 5 mg immediate release tablet Take 1 tablet (5 mg total) by mouth every 4 (four) hours. Max Daily Amount: 30 mg Active senna-docusate (PERICOLACE) 8.6-50 mg per tablet Take 1 tablet by mouth 1 (one) time each day. Active Active Problems Problem Noted Date Diagnosed Date DJD (degenerative joint disease) 04/17/2023 Gait instability 04/17/2023 Homelessness 04/17/2023 Osteonecrosis of left hip (CMS/HCC V24, CMS/HCC V28) 04/17/2023 Osteonecrosis of right hip (CMS/HCC V24, CMS/HCC V28) 04/17/2023 MRSA infection 04/14/2023 Lumbar stenosis 04/06/2023 Overview (03/22/2024): Last Assessment & Plan: Patient is POD #13 s/p L2-3 decompression. She has postop incisional pain, + seroma, residual pain in the legs bilaterally. She also has severe bilateral hip OA. She has upcoming appointment 04/17/2023 with orthopedics EmilianoYong Smith to go over her hip x- rays done today. She is using oxycodone and Tylenol, occasional muscle relaxers, ice as needed to the incision. She is doing exercises with physical therapy, walking approximately 100 feet with a walker. She gets spasms in the groin. She has not had any postop fevers, wound drainage, sweats chills. She is eating well. + BM. Ms. Wei should note continued improvements with time as things heal. She will follow-up with Dr. Jose on 05/26/2023 at 11:45 AM. Please call with any concerns or questions, all postop questions answered with patient. #[phone]. We recommend patient be as active and ambulate is much as possible/tolerated. We recommend daily showers to keep the wound clean. Patient should not submerge the incision underwater, like a tub bath, pool or Jacuzzi. Patient may benefit from trying a different narcotic pain medication to see if she gets better pain relief, does not feel oxycodone is giving full relief of her pain. She may want to try lidocaine patch to the lateral back, do not apply over the incision, as an additional option to the narcotics. Hyperlipidemia 08/05/2016 Hypertension 08/05/2016 Insomnia 08/05/2016 Surgical History Surgery Date Site/Laterality Comments TUBAL LIGATION PROCEDURE: HISTORICAL TUBAL LIGATION CYST REMOVAL PROCEDURE: IL EXCISION PILONIDAL CYST/SINUS SIMPLE OTHER SURGICAL HISTORY 2004 PROCEDURE: IL LAMOT PRTL FFD EXC DISC REEXPL 1 NTRSPC CERVICAL; COMMENT: cervical disc FOOT SURGERY PROCEDURE: HISTORICAL FOOT SURGERY; COMMENT: foot reconstruction age 13 Medical History Medical History Date Comments Hypertension 08/05/2016 DX:Hypertension Hyperlipidemia 08/05/2016 DX:Hyperlipidemi a Insomnia 08/05/2016 DX:Insomnia Morbid obesity with BMI of 4 0.0-44.9, adult (CMS/HCC V24, CMS/HCC V28) 08/05/2016 DX:Morbid obesity wit h BMI of 40.0-44.9, adult ([facility]) Family History Medical History Relation Name Comments Heart attack Brother 1 Stroke Father AAA Heart failure Maternal Grandmother COPD COPD Mother Other: nonhodgkins lymphoma Sister 1 Relation Name Status Comments Brother 1 Brother 2 Father Maternal Grandmother Mother Sister 1 Sister 2 Social History Tobacco Use Types Packs/Day Years Used Date Smoking Tobacco: Every Day Cigarettes Smokeless Tobacco: Never Comments Unknown Sex and Gender Information Value Date Recorded Sex Assigned at Not on file Legal Sex Female 3:54 PM EST Gender Identity Not on file Sexual Orientation Not on file Obstetrics History Last Filed Vital Signs Vital Sign Reading Time Taken Comments Blood Pressure - - Pulse - - Temperature - - Respiratory Rate - - Oxygen Saturation - - Inhaled Oxygen Concentration - - Weight 76.7 kg (169 lb 3.2 oz) 04/17/2023 2:38 P M EST Height 170.2 cm (5' 7 ) 04/17/2023 2:38 PM EST Body Mass Index 26.5 04/17/2023 2:38 PM EST Plan of Treatment Health Maintenance Due Date Last Done Comments Breast Cancer Screening 1965 DTaP,Tdap,and Td Vaccines (1 - Tdap) 11/20/1982 Pneumococcal Vaccine: 50+ Ye ars (1 of 2 - PCV) 11/20/1982 Pneumococcal Vaccine: Pediat rics (0 to 5 Years) and At-Risk Patients (6 to 64 Years) (1 of 2 - PCV) 11/20/1982 Cervical Cancer Screening: P ap Smear 11/20/1984 Zoster Vaccines (1 of 2) 11/20/2013 Cholesterol Screening (Lipid Panel) 05/02/2023 Colorectal Cancer Screening: Colonoscopy 05/02/2023 Depression Screening 05/02/2023 HIV Screening 05/02/2023 Hepatitis C Screening 05/02/2023 Hypertension/CHF/CAD Annual BMP Blood Test 05/02/2023 Social Influencers of Health Screening 05/02/2023 COVID-19 Vaccine (2023-2 5 season) 2023 Influenza Vaccine (Season Ended) 2024 RSV Immunization Adult Patie nts (1 - 1-dose 75+ series) 11/20/2038 HIB Vaccines Aged Out No longer eligi ble based on patient's age to complete this topic HPV Vaccines Aged Out No longer eligi ble based on patient's age to complete this topic Hepatitis A Vaccines Aged Out No long er eligible based on patient's age to complete this topic Hepatitis B Vaccines Aged Out No long er eligible based on patient's age to complete this topic IPV Vaccines Aged Out No longer eligi ble based on patient's age to complete this topic MMR Vaccines Aged Out No longer eligi ble based on patient's age to complete this topic Meningococcal ACWY Vaccine Aged Out N o longer eligible based on patient's age to complete this topic Meningococcal B Vaccine Aged Out No l onger eligible based on patient's age to complete this topic RSV Immunization Patients Un remi 20 months Aged Out No longer eligible b ased on patient's age to complete this topic Varicella Vaccines Aged Out No longer eligible based on patient's age to complete this topic Care Teams Hosiery Repairer Relationship Specialty Start Date End Date Marilee Gracia MD [address] [place] [address] PCP - General Internal Medicine 07/04/16
== END 2024-08-28 16:45 | disposition home or self-care (01) ==
PROVIDERS: PCP Nurse Practitioner Family; Visit Provider Physician Assistant
DX: M54.50 Low back pain, unspecified (principal)

== ENCOUNTER → 2024-08-28 16:06 | Outpatient (BNVA) | payer OTHER, SELFPAY | PROVIDERS: PCP Nurse Practitioner Family; Visit Provider Physician Assistant | DX: M54.50 Low back pain, unspecified (principal) | CPT/HCPCS: 99212 ==